=== PATIENT | female | born 1960 | race Caucasian/White ===

== ENCOUNTER → 2017-04-13 | Outpatient (CLI) | payer OTHER | LOC: MAMMO 14:32 | PROVIDERS: ATTEND Nurse Practitioner Family | DX: Z12.31 Encounter for screening mammogram for malignant neoplasm of breast (principal) ==

== ENCOUNTER 2017-10-17 04:33 | Emergency (ER) | payer SELFPAY ==
[2017-10-17 04:48] VITALS: TEMP 97.6; O2SAT 99
[2017-10-17] MEDS ORDERED: PROMETHAZINE HCL INJ 25 MG/ML VIAL ONE (04:56)
[2017-10-17] MEDS ORDERED: SODIUM CHLORIDE 0.9% 50ML 50 ML ONE (04:56)
[2017-10-17] MEDS ORDERED: KETOROLAC TROMETHAMINE INJ 30 MG/ML VIAL IV ONE (04:57)
[2017-10-17] MEDS ORDERED: PROMETHAZINE HCL INJ 25 MG in SODIUM CHLORIDE 0.9% 50ML 50 ML IVPB ONE (04:57)
[2017-10-17] MEDS ORDERED: PANTOPRAZOLE SODIUM IV 40 MG VIAL IV ONE (04:57)
[2017-10-17] MEDS ORDERED: SODIUM CHLORIDE 0.9% 1000ML 1,000 ML IVS ONE (04:57)
[2017-10-17] MEDS ORDERED: ALUMINUM & MAGNESIUM HYDROXIDE 30 ML UD PO ONE (04:58)
--- NOTE | 2017-10-17 05:01 | ED.PDOC ---
History of Present Illness - General Source: patient Exam Limitations: no limitations - History of Present Illness Initial Comments: the patient is a 57-year-old female presenting to the emergency room secondary toepigastric and right upper quadrant pain that started abruptly this morning approximately 3 hours prior to arrival. The patient has been throwing up. No diarrhea. No history of any pancreatitis. She does have a history of gallstones and biliary colic resulting from that. Her last flare was about 3 years ago. She denies any fevers. No cough. She did recently have a URI that has resolved. Timing/Duration: 1-3 hours Severity: severe Improving Factors: nothing Worsening Factors: nothing Associated Symptoms: diaphoresis, loss of appetite, malaise, nausea/vomiting - General Chief Complaint: GI Problem Stated Complaint: gallbladder attack Time Seen by Provider: 10/17/17 04:51 - History of Present Illness Allergies/Adverse Reactions: Allergies Hydrocodone Allergy (Verified 10/17/17 04:48) Meperidine [From Demerol HCl] Allergy (Verified 10/17/17 04:48) Home Medications: Ambulatory Orders Dicyclomine HCl [Bentyl] 20 mg PO Q6HRS #30 tab 10/17/17 Ondansetron HCl [Zofran] 4 mg PO PRN #10 ml 10/17/17 Tramadol HCl [Ultram] 50 mg PO Q6H PRN #30 tab 10/17/17 Review of Systems - Review of Systems Constitutional: States: malaise EENTM: States: no symptoms reported Respiratory: States: no symptoms reported Cardiology: States: no symptoms reported Gastrointestinal/Abdominal: States: abdominal pain, nausea, vomiting. Denies: constipation, diarrhea Genitourinary: States: no symptoms reported Musculoskeletal: States: no symptoms reported Skin: States: no symptoms reported Neurological: States: no symptoms reported Endocrine: States: no symptoms reported All other Systems: No Change from Baseline Past Medical History (General) - Patient Medical History Hx Seizures: No Hx Stroke: No Hx Dementia: No Hx Asthma: No Hx of COPD: No Hx Cardiac Disorders: No Hx Congestive Heart Failure: No Hx Pacemaker: No Hx Hypertension: No Hx Thyroid Disease: No Hx Diabetes: No Hx Gastroesophageal Reflux: No Hx Renal Disease: No Hx of HIV: No Hx MRSA: No - Vaccination History Hx Tetanus, Diphtheria Vaccination: No Hx Influenza Vaccination: Yes - Social History Hx Tobacco Use: No Hx Alcohol Use: Yes - social Family Medical History - Family History Mother Living Status: Still Living Hx Family Hypertension: Yes Hx Family;Other: COPD Physical Exam - Physical Exam General Appearance: Alert, Obvious distress Eye Exam: bilateral normal Ears, Nose, Throat: hearing grossly normal Neck: non-tender, supple Respiratory: lungs clear, normal breath sounds, no respiratory distress, no accessory muscle use Cardiovascular/Chest: normal peripheral pulses, regular rate, rhythm, no edema Peripheral Pulses: radial,right: 2+, radial,left: 2+ Gastrointestinal/Abdominal: soft, other - mild epigastric and right upper quadrant discomfort palpation. No rebound or peritoneal signs. Mildly obese. Rectal Exam: deferred Back Exam: no CVA tenderness, no vertebral tenderness Extremity: normal inspection, no pedal edema, normal capillary refill Neurologic: warehouse manager II-XII nml as tested, alert, normal mood/affect, oriented x 3 Skin Exam: normal color Progress - Progress Progress: 10/17/17 05:02 the patient is a 57-year-old female with a history of intermittent biliary colic from stones in her gallbladder. she reports her symptoms are characteristic with previous attacks. That is the presumptive diagnosis currently. Workup will include CBC, CMP, amylase, lipase, cardiac enzymes, urinalysis, acute abdominal series. She is going to receive doses of Protonix, Maalox, Phenergan, normal saline, Toradol and eventually likely IV morphine if the pain is still persistent. Adjust therapy as dictated by workup results. 10/17/17 06:54 the patient is finally getting some relief after receiving IV Zofran as well as IV Phenergan and a small dose of IV morphine. The patient will be monitored a little further to see if she has a significant recurrence of her abdominal pain and nausea and vomiting once these patients medications wear down. If so she may require admission and further management. It has not been very long since the onset of her symptoms and repeat CMP may be worthwhile in a few hours especially of her symptoms recur along with additional imaging at that time if that is the case. The patient will be followed by Dr. Garvey on morning shift. - Results/Orders Results/Orders: Laboratory Tests 10/17/17 10/17/17 10/17/17 05:06 05:06 05:34 WBC 10.3 RBC 4.82 Hgb 14.0 Hct 41.0 MCV 85.2 MCH 29.2 MCHC 34.2 RDW 12.9 Plt Count 271 MPV 8.5 Absolute Neuts (auto) 8.60 H Absolute Lymphs (auto) 1.30 Absolute Monos (auto) 0.30 Absolute Eos (auto) 0.00 Absolute Basos (auto) 0.00 Neutrophils % 83.7 H Lymphocytes % 12.3 L Monocytes % 3.3 Eosinophils % 0.3 L Basophils % 0.4 Sodium 139 Potassium 3.5 L Chloride 103 Carbon Dioxide 25 Anion Gap 14.5 BUN 21 H Creatinine 0.73 BUN/Creatinine Ratio 28.8 H Random Glucose 143 H Serum Osmolality 283.0 Calcium 10.2 Total Bilirubin 0.7 AST 27 ALT 46 Alkaline Phosphatase 83 Creatine Kinase 108 CK-MB (CK-2) 2.6 CK-MB (CK-2) % Not Reportable Troponin I < 0.02 Serum Total Protein 7.9 Albumin 4.9 Globulin 3.0 Albumin/Globulin Ratio 1.6 Amylase 95 Lipase 39 Urine Color Yellow Urine Appearance Clear Urine pH 6.5 Ur Specific Burnham 1.025 Urine Protein Negative Urine Glucose (UA) Negative Urine Ketones Trace Urine Blood Trace-intact H Urine Nitrite Negative Urine Bilirubin Negative Urine Urobilinogen 0.2 Ur Leukocyte Esterase Negative Urine RBC 0-1 Urine WBC 0-1 Ur Epithelial Cells 1-3 Urine Bacteria 0 acute abdominal series shows no evidence of any acute pathology. No bowel obstruction. No ileus. No free air is obvious. Departure - Departure Clinical Impression: Biliary colic symptom Disposition: Discharge to Home or Self Care Condition: Fair Departure Forms: ED Discharge - Pt. Copy, Patient Portal Self Enrollment Referrals: Cecy Sanchez NP [Primary Care Provider] - 1-2 Weeks Prescriptions: Dicyclomine HCl [Bentyl] 20 mg PO Q6HRS #30 tab Ondansetron HCl [Zofran] 4 mg PO PRN #10 ml Tramadol HCl [Ultram] 50 mg PO Q6H PRN #30 tab PRN Reason: Pain Home Medications: Ambulatory Orders Dicyclomine HCl [Bentyl] 20 mg PO Q6HRS #30 tab 10/17/17 Ondansetron HCl [Zofran] 4 mg PO PRN #10 ml 10/17/17 Tramadol HCl [Ultram] 50 mg PO Q6H PRN #30 tab 10/17/17
[2017-10-17] MEDS ORDERED: ONDANSETRON INJ 4 MG/2 ML VIAL ONE (05:17)
[2017-10-17] MEDS ORDERED: MORPHINE SULFATE INJ 10 MG/ML VIAL ONE (05:18)
[2017-10-17] MEDS ORDERED: ONDANSETRON INJ 4 MG/2 ML VIAL IV ONE (05:19)
[2017-10-17] MEDS ORDERED: MORPHINE SULFATE INJ 10 MG/ML VIAL IV ONE ×2 (05:20→10:29)
--- NOTE | 2017-10-17 06:14 | RAD ---
EXAM: Acute abdominal series. INDICATION: Abdominal pain, acute. COMPARISON: None. FINDINGS: Cardiac silhouette: Unremarkable. Yamileth: Unremarkable. Lobar consolidation: None. Pleural effusion: None. Pneumothorax: None. Other: None. Intraperitoneal free air: Negative. Bowel: No dilated loops of small bowel or air-fluid levels. Bones: Unremarkable. Other: Multiple phleboliths are noted within the pelvis IMPRESSION: 1. Nonspecific, nonobstructed bowel gas pattern. Electronically signed by: Jose De Jesus Raymond MD 10/17/2017 6:12 AM SUPERVISOR [employer]GL[employer] Workstation: [id number]
[2017-10-17 06:42] VITALS: BP 132/79
[2017-10-17] MEDS ORDERED: DICYCLOMINE HCL INJ 20 MG/2 ML AMP IM ONE (07:17)
[2017-10-17] MEDS ORDERED: fentaNYL CITRATE INJ 50 MCG/ML AMP IV ONE (08:11)
--- NOTE | 2017-10-17 11:00 | CT ---
Procedure: CT ABDOMEN PELVIS WITH IV CONTRAST Exam Date: 10/17/2017 10:28 AM DISTRIBUTION DISTRICT SUPERVISOR Ordering Provider: Kati Moreno Clinical Indication: abdominal pain Comparison: None TECHNIQUE: The abdomen and pelvis were scanned utilizing a multidetector helical scanner from the diaphragm to the lesser trochanter . Low osmolar IV contrast was also given. Coronal and sagittal reformations were obtained. This exam was performed according to our departmental dose-optimization program which includes automated exposure control, adjustment of the mA and/or kV according to patient size and/or use of iterative reconstruction technique. DISCUSSION: LOWER THORAX: There are bilateral mammary implants. Heart size is normal. Right basilar subsegmental atelectasis. HEPATOBILIARY: No focal hepatic lesions. No biliary ductal dilatation. The gallbladder is distended. No radiopaque gallstone. SPLEEN: No splenomegaly. PANCREAS: No focal masses or ductal dilatation. ADRENALS: No adrenal nodules. KIDNEYS/URETERS: No hydronephrosis, stones, or solid mass lesions. Subcentimeter simple cysts are seen in the kidneys. PELVIC ORGANS/BLADDER: There is a suspected 3.7 cm uterine fibroid arising from the uterine fundus. Uterus is anteverted. Bladder is unremarkable.. PERITONEUM / RETROPERITONEUM: No free air or fluid. LYMPH NODES: No lymphadenopathy. VESSELS: Unremarkable. GI TRACT: No distention or wall thickening. Small sliding-type hiatal hernia is present. Few scattered ascending and sigmoid diverticula are present without evidence of diverticulitis. BONES AND SOFT TISSUES: No acute abnormality. IMPRESSION: 1. No acute intra-abdominal or intrapelvic process. 2. Colonic diverticulosis without diverticulitis. 3. Small sliding-type hiatal hernia. 4. Suspected uterine fibroid. 5. Distended appearance of the gallbladder without evidence of radiopaque gallstones. Electronically signed by: David Boswell MD 10/17/2017 11:00 AM DISTRIBUTION DISTRICT SUPERVISOR
== END 2017-10-17 12:00 | disposition home or self-care (01) ==
LOC: ER 04:33
DX: K80.20 Calculus of gallbladder without cholecystitis without obstruction (principal)
CPT/HCPCS: 36415; 74019; 74177; 80053; 81001; 82150; 82550; 82553; 83690; 84484; 85025; A4216; J0500; J1885; J2270; J2405; J2550; J3010; J7030

== ENCOUNTER → 2017-11-02 | Outpatient (CLI) | payer OTHER ==
--- NOTE | 2017-11-02 14:58 | US ---
EXAM DESCRIPTION: Abdomen,Complete: Ultrasound. CLINICAL HISTORY: ABD PAIN, RIGHT UPPER QUAD COMPARISON: None Available. TECHNIQUE: Transabdominal scannin-dimensional and Doppler modes. FINDINGS: Gallbladder: Enlarged/distended with multiple layering stones mobile with patient change in position. Acoustic shadowing. Largest stone 8 mm diameter. Wall thickness 2 mm. Not tender with transducer pressure. 0.6 mm echogenic object on the wall which does not change position with patient motion and no acoustic shadowing. No fluid around the gallbladder. Common bile duct: Normal 5.1 mm. Liver: Increased echogenicity. Long axis of the right lobe is 14.4 cm. No intrahepatic biliary dilatation. No ascites. Smooth capsule. Hepatopedal flow of the portal vein. Pancreas: Normal size and echogenicity. Duct was not seen. Abdominal aorta: Normal caliber proximal to distal. IVC: visualized; normal caliber. Spleen normal echogenicity; long axis measurement is 9.8 cm. Right kidney: Long axis is 9.7 cm. Mid renal cortical thickness 11 mm. No hydronephrosis or large stones or perinephric fluid. Left kidney: Long axis is 11.9 cm. Mid renal cortical thickness 8.6 mm. No hydronephrosis, no large calcifications, or perirenal fluid. IMPRESSION: 1. Enlarged and distended gallbladder with multiple movable gallstones. Also polyp. No wall thickening or fluid. Nontender during scanning. 2. Possible steatosis of the liver but not enlarged. No ascites. Normal intrahepatic ducts. 3. Normal caliber common bile duct. 4. Bilateral kidneys with thinning of the cortex, more on the left. No hydronephrosis or perinephric fluid. Is there history of medical renal disease? Electronically signed by: Raji Abebe MD 11/02/2017 2:57 PM INFORMATION SECURITY ARCHITECT
== END ==
LOC: US 08:16
PROVIDERS: ATTEND Surgery
DX: K80.80 Other cholelithiasis without obstruction (principal)

== ENCOUNTER → 2017-11-22 | Day surgery (SDC) | payer OTHER ==
--- NOTE | 2017-11-16 14:53 | RAD ---
Study: Frontal and Lateral Views of the Chest. Indication: pre op Comparison: None. Impression: Heart size normal. Lungs hyperexpanded but clear. Degenerative changes of the spine noted. Osteopenia. If this is a new finding, DEXA scan recommended as well as evaluation for possible osteoporosis treatment. Electronically signed by: Jose Liu MD 11/16/2017 2:36 PM [facility]
[~2017-11-22] MED LIST: ACETAMINOPHEN IV 1000MG 100 ML ONE; BUPIVACAINE 0.25% W/EPI 50 ML VIAL INJ ONE; DEXAMETHASONE INJ 10 MG/ML VIAL IV ONE; ELECTROLYTE-A 1,000 ML IVS ONE; HEPARIN SODIUM (PORCINE) 10,000 UNITS/ML VIAL ONE; HYDROmorphone HCL INJ 2 MG/ML VIAL ONE; LACTATED RINGERS 1,000 ML ONE; LIDOCAINE 1% 10 ML VIAL INJ ONE; METOCLOPRAMIDE HCL INJ 10 MG/2 ML VIAL IV ONE; MIDAZOLAM INJ 2 MG/2 ML VIAL ONE; ONDANSETRON INJ 4 MG/2 ML VIAL ONE; PROPOFOL 200 MG/20 ML VIAL IV ONE; ROCURONIUM BROMIDE 10 MG/ML VIAL ONE; SCOPOLAMINE PATCH 1.5MG 1 EA TD ONE; SODIUM CHL 0.9% 100ML MINI-BAG 100 ML IVPB ONE; SUGAMMADEX SODIUM 200 MG/2 ML VIAL IV ONE; ceFAZolin SODIUM 1 GM VIAL ONE
--- NOTE | 2017-11-22 10:58 | OP ---
DATE OF PROCEDURE: 11/22/17 PREOPERATIVE DIAGNOSIS: 1. Symptomatic cholelithiasis. 2. Fatty infiltration of the liver. POSTOPERATIVE DIAGNOSIS: 1. Symptomatic cholelithiasis. 2. Fatty infiltration of the liver. 3. Chronic cholecystitis. PROCEDURE: 1. Laparoscopic cholecystectomy with intraoperative cholangiography using fluoroscopy. 2. Wedge biopsy, right lobe of the liver. SURGEON: Elvin Rooney MD. HOME AND FAMILY LIVING PROFESSOR: None. ANESTHESIA: Local infiltration of 0.25% Marcaine with epinephrine and general endotracheal anesthesia. INDICATION: The patient is a 57-year-old female who has had knowledge of gallstones for many years. She had generally done well with diet, but recently had some discomfort. She has sonographically diagnosed cholelithiasis. The patient was brought to the Surgical Suite today for cholecystectomy after the risks, benefits and alternatives to the procedure were discussed and accepted. FINDINGS: The patient's gallbladder was quite large and distended and upon aspiration had white bile. Intraoperative cholangiography revealed free flow into the duodenum with no filling defects or strictures noted. There were multiple stones in the gallbladder when it was opened and there were multiple adhesions in the pelvis from previous surgery. The liver appeared to have minimal fatty infiltration of the liver and pathology is pending. DESCRIPTION OF PROCEDURE: After adequate general endotracheal anesthesia was obtained, the patient was prepped and draped in the usual sterile manner. Surgical time-out was taken. The infraumbilical area was infiltrated with local anesthesia. A curvilinear incision was fashioned in the inferior aspect of the umbilicus. Dissection was carried down through the subcutaneous tissue to the midline fascia. Traction sutures were placed on either side of the midline. A small incision was made in the midline fascia and the peritoneum was opened bluntly. Mary trocar was introduced under direct vision into the abdominal cavity and fixed in place with the 20 mL balloon. CO2 was then insufflated until a pressure of 12 mmHg was reached and the abdomen was tympanitic in all four quadrants. When this was done, the laparoscope was introduced. The abdomen was inspected with the previously noted findings. The patient was then placed in reverse Trendelenburg position, turned to the left side. The upper abdominal ports were placed under direct vision. The gallbladder was inspected and a Storz needle was introduced and 60 mL of white bile was aspirated. The site of aspiration was then clipped. The gallbladder was grasped, retracted anteriorly and laterally and flipped over the liver. The neck of the gallbladder was retracted laterally. The triangle of Calot was then explored with the cystic duct and cystic artery identified and isolated. The cystic duct was hemoclipped once proximally. The cystic artery was hemoclipped twice proximally and once distally. Two other vessels were clipped proximally. When this was done, a small incision was made in the cystic duct. The cholangiogram catheter was introduced through a separate stab wound in the right upper quadrant, introduced into the cystic duct and clipped in place. Cholangiograms were then taken using fluoroscopy which revealed free flow into the duodenum with no filling defects or strictures noted. When this was done, the cystic duct catheter was removed. The cystic duct was hemoclipped three times distally and divided between the hemoclips. The cystic artery was divided as were the other vessels. The gallbladder was then dissected free from the gallbladder bed of the liver using electrocautery. The gallbladder was removed from the infraumbilical port site in the usual manner by opening the gallbladder and removing the stones until it easily passed. When this was done, the subhepatic space and subphrenic space were irrigated copiously with saline. There was some bleeding noted from the leny hepatis which was controlled with a single clip on a vessel. There was some oozing in the gallbladder bed of the liver which was easily controlled with electrocautery. When this was done, wedge biopsy of the right lobe of the liver was performed using sharp scissors. It was then removed from the umbilical port. Hemostasis was obtained in the liver with the cautery turned up to 50. When this was done , it was turned back to 30. The subhepatic space and subphrenic space were irrigated copiously with saline. The effluent was noted to be clear. The upper abdominal ports were removed under direct vision. When hemostasis was noted to be adequate there, the CO2, the laparoscope and the infraumbilical port were removed. The infraumbilical port site fascia was approximated with a single [id number] suture of 0 Vicryl. Subcutaneous tissue was irrigated with saline. Skin edges were approximated with 4-0 Vicryl subcuticular sutures , benzoin and Steri-Strips. Sterile dressings were applied. The patient was awakened and taken to the Recovery Room in good and stable condition. Estimated blood loss was less than 50 mL. All sponge, needle and instrument counts were correct. #[id number] [facility]
[2017-11-23 08:45] VITALS: O2SAT 94
[2017-11-23 08:47] VITALS: BP 119/77; TEMP 97.4
== END | disposition home or self-care (01) ==
LOC: AMB 08:00
PROVIDERS: ATTEND Surgery
DX: K80.10 Calculus of gallbladder with chronic cholecystitis without obstruction (principal); K76.0 Fatty (change of) liver, not elsewhere classified; E66.9 Obesity, unspecified; R94.31 Abnormal electrocardiogram [ECG] [EKG]; Z87.891 Personal history of nicotine dependence; Z88.8 Allergy status to other drugs, medicaments and biological substances

== ENCOUNTER → 2018-03-15 | Outpatient (CLI) | payer OTHER ==
--- NOTE | 2018-03-15 11:32 | US ---
EXAM DESCRIPTION: Soft Tissue,Abdomen: ULTRASOUND. CLINICAL HISTORY: HERNIA COMPARISON: None Available. TECHNIQUE: Transcutaneous scanning: Alonzo-scale and Doppler modes.. Patient supine and standing. FINDINGS: When standing, palpable mass in the right inguinal canal. Grayscale images show bowel with peristalsis in the canal. Bowel retraction into the abdomen in supine position. No significant bowel luminal dilation. IMPRESSION: Herniation of bowel into the right inguinal canal with standing, but peristalsis maintained with no luminal dilation. Electronically signed by: Raji Abebe MD 03/15/2018 11:30 AM CDT
== END ==
LOC: US 08:30
PROVIDERS: ATTEND Nurse Practitioner Acute Care
DX: K46.9 Unspecified abdominal hernia without obstruction or gangrene (principal)

== ENCOUNTER → 2018-04-28 | Outpatient (CLI) | payer OTHER ==
--- NOTE | 2018-04-28 18:48 | US ---
EXAM DESCRIPTION: Soft Tissue,Abdomen CLINICAL HISTORY: K46.9 painful lump in the left lower quadrant of the abdomen for six days COMPARISON: Previous study March 15, 2018 TECHNIQUE: Right upper quadrant ultrasound FINDINGS: Study is limited to evaluation of the anterior abdominal wall at the site of palpable abnormality, pain. Small mass is seen 2 x 1.4 x 2.8 cm consistent with a ventral hernia. This may contain omental fat and a small amount of surrounding fluid. There may be some bowel in the hernia as well with shadowing suggesting some gas. The amount of fluid is small. No bowel wall thickening to suggest strangulation or incarceration. Patient had a CT of the abdomen October 17, 2017 but no hernia was seen at that time. No ventral hernia was evident at that time. Patient had a soft tissue sonogram March 15, 2018 which showed evidence of a hernia in the right inguinal area. IMPRESSION: Findings consistent with left lower quadrant ventral hernia. Electronically signed by: Trev Ventura MD 04/28/2018 6:46 PM CDT
== END ==
LOC: US 12:20
PROVIDERS: ATTEND Nurse Practitioner Acute Care
DX: K46.9 Unspecified abdominal hernia without obstruction or gangrene (principal)

== ENCOUNTER → 2019-09-30 | Outpatient (CLI) | payer BC ==
[~2019-09-30] MED LIST changes: -ACETAMINOPHEN IV 1000MG 100 ML ONE; -BUPIVACAINE 0.25% W/EPI 50 ML VIAL INJ ONE; -DEXAMETHASONE INJ 10 MG/ML VIAL IV ONE; +DEXAMETHASONE INJ 4 MG/ML VIAL IM ONE; -ELECTROLYTE-A 1,000 ML IVS ONE; -HEPARIN SODIUM (PORCINE) 10,000 UNITS/ML VIAL ONE; -HYDROmorphone HCL INJ 2 MG/ML VIAL ONE; -LACTATED RINGERS 1,000 ML ONE; -LIDOCAINE 1% 10 ML VIAL INJ ONE; -METOCLOPRAMIDE HCL INJ 10 MG/2 ML VIAL IV ONE; -MIDAZOLAM INJ 2 MG/2 ML VIAL ONE; -ONDANSETRON INJ 4 MG/2 ML VIAL ONE; -PROPOFOL 200 MG/20 ML VIAL IV ONE; -ROCURONIUM BROMIDE 10 MG/ML VIAL ONE; -SCOPOLAMINE PATCH 1.5MG 1 EA TD ONE; -SODIUM CHL 0.9% 100ML MINI-BAG 100 ML IVPB ONE; -SUGAMMADEX SODIUM 200 MG/2 ML VIAL IV ONE; -ceFAZolin SODIUM 1 GM VIAL ONE; +cefTRIAXone SODIUM 1 GM VIAL IM ONE
--- NOTE | 2019-09-30 17:07 | RAD ---
EXAM DESCRIPTION: Chest,2 Views CLINICAL HISTORY: 59 years Female COUGH COMPARISON: November 16, 2017. TECHNIQUE: Two view study of the chest was performed. FINDINGS: Cardiac size is within normal limits. Central vessels are not increased area No infiltrates or effusions seen. No consolidation. No pneumothorax. IMPRESSION: No active disease. Electronically signed by: Naomie Dyer MD 09/30/2019 5:06 PM FOOD SERVICE LEAD
== END ==
LOC: LAB.O 15:15
PROVIDERS: ATTEND Nurse Practitioner Family
DX: J18.9 Pneumonia, unspecified organism (principal)
CPT/HCPCS: 36415; 71046; 85025; 96372; J0696; J1100

== ENCOUNTER → 2019-10-23 | Outpatient (CLI) | payer BC | LOC: LAB.O 09:20 | PROVIDERS: ATTEND Nurse Practitioner Acute Care | DX: E34.8 Other specified endocrine disorders (principal); N95.1 Menopausal and female climacteric states; E50.8 Other manifestations of vitamin A deficiency ==

== ENCOUNTER 2020-11-21 05:38 | Day surgery (SDC) | payer BC ==
--- NOTE | 2020-11-20 13:42 | RAD ---
XR CHEST 2 VIEWS HISTORY: 60 years Female pre op COMPARISON: September 30, 2019. TECHNIQUE: PA and lateral views of the chest. FINDINGS: Lungs: No focal consolidation, pleural effusion, or pneumothorax detected. Heart/Mediastinum: Cardiomediastinal silhouette is unremarkable. Bones: No acute abnormality detected. IMPRESSION: No evidence of an acute cardiopulmonary process. Electronically signed by: Alexys Batres MD 11/20/2020 1:40 PM [facility]
[2020-11-21] MEDS ORDERED: METOCLOPRAMIDE HCL INJ 10 MG/2 ML VIAL ONE (07:00)
[2020-11-21] MEDS ORDERED: MAGNESIUM SULFATE INJ 1 GM/2 ML VIAL ONE (07:00)
[2020-11-21] MEDS ORDERED: KETOROLAC TROMETHAMINE INJ 30 MG/ML VIAL ONE (07:00)
[2020-11-21] MEDS ORDERED: PROPOFOL 200 MG/20 ML VIAL IV ONE (07:00)
[2020-11-21] MEDS ORDERED: DEXAMETHASONE INJ 10 MG/ML VIAL ONE (07:00)
[2020-11-21] MEDS ORDERED: ONDANSETRON ODT 8 MG TAB ONE (07:00)
[2020-11-21] MEDS ORDERED: LIDOCAINE 1% 10 ML VIAL INJ ONE (07:00)
[2020-11-21] MEDS ORDERED: LACTATED RINGERS 1,000 ML ONE (07:15)
[2020-11-21] MEDS ORDERED: ceFAZolin SODIUM 1 GM VIAL ONE (07:15)
[2020-11-21] MEDS ORDERED: SODIUM CHL 0.9% 100ML MINI-BAG 100 ML IVPB ONE (07:16)
[2020-11-21] MEDS ORDERED: LACTATED RINGERS 1,000 ML IVS ONE (07:30)
[2020-11-21] MEDS ORDERED: SCOPOLAMINE PATCH 1.5MG 1 EA TD ONE ×2 (07:50→07:51)
[2020-11-21] MEDS ORDERED: DEXMEDETOMIDINE HCL 200 MCG/2 ML INJ IV ONE (07:57)
[2020-11-21] MEDS ORDERED: MIDAZOLAM INJ 2 MG/2 ML VIAL ONE (07:57)
[2020-11-21] MEDS ORDERED: FAMOTIDINE INJ 10 MG/ML VIAL IV ONE (07:58)
[2020-11-21] MEDS ORDERED: fentaNYL CITRATE INJ 50 MCG/ML 2 ML AMP ONE (07:58)
[2020-11-21] MEDS ORDERED: BUPIVACAINE 0.25% W/EPI 50 ML VIAL INJ ONE ×2 (08:01→08:05)
[2020-11-21] MEDS ORDERED: ACETAMINOPHEN IV 1000MG 100 ML ONE (08:20)
[2020-11-21] MEDS ORDERED: HYDROmorphone HCL INJ 2 MG/ML VIAL ONE (09:27)
[2020-11-21] MEDS ORDERED: LACTATED RINGERS 400 ML IVS ONE (10:36)
[2020-11-21 11:21] VITALS: O2SAT 94
--- NOTE | 2020-11-21 11:29 | OP ---
DATE OF PROCEDURE: 11/21/20 PREOPERATIVE DIAGNOSIS: 1. Incarcerated right inguinal hernia. 2. Left lower quadrant ventral hernia. POSTOPERATIVE DIAGNOSIS: 1. Incarcerated right inguinal hernia. 2. Left lower quadrant ventral hernia. PROCEDURE: 1. Repair of incarcerated right inguinal hernia with onlay mesh. 2. Repair of left lower quadrant ventral herniation with onlay mesh. SURGEON: Elvin Rooney MD. FOREST MANAGEMENT TEACHER: None. ANESTHESIA: Local infiltration of 0.25% Marcaine with epinephrine and general laryngeal mask anesthesia. INDICATION: The patient is a 60-year-old female with a tender mass in the right groin that has been present for some time, but has become more uncomfortable and non-reducible. She also has a reducible, mildly tender mass in the left lower quadrant which has been evaluated with radiological workup and reveals a hernia. The patient was brought to the Surgical Suite today for repair of same after the risks, benefits and alternatives to the procedure were discussed and accepted. FINDINGS: The right inguinal hernia was an indirect inguinal hernia. There appeared to be both bowel and omentum within the hernia prior to reduction. The bowel was viable appearing through the hernia sac, which was not opened. The hernia in the left lower quadrant was lateral to the rectus muscle and a defect in the internal oblique fascia. PROCEDURE: After adequate general laryngeal mask anesthesia was obtained, the patient was prepped and draped in the usual sterile manner. The right lower quadrant was then marked and local infiltration of anesthesia was obtained. The skin was incised with a sharp knife obliquely. Dissection was carried down through the skin and subcutaneous tissue using electrocautery and blunt dissection. The external oblique fascia was identified and then incised in the direction of the fibers through the external inguinal ring. The external oblique fascia was dissected free from the floor of the canal and the round ligament. Self-retaining retractor was placed at this level. The round ligament was dissected free from the floor of the canal. A half inch Kerri drain was placed around it. The hernia sac was then dissected free from the round ligament and reduced down to the floor of the inguinal canal, then circumferentially dissected using blunt dissection so that there was a place for the mesh. The Prolene mesh system was introduced using the taco technique. It was then spread flat against the inside of the floor of the canal. When this was done, the outer mesh layer was then sutured circumferentially with interrupted 2-0 Vicryl sutures. When this was done, hemostasis was noted to be adequate. The wound was irrigated with saline. The external oblique fascia was then closed with running 3-0 Vicryl suture. The round ligament and subcutaneous tissue above and below the incision were infiltrated with local anesthesia. The Pravin's fascia was approximated with interrupted Chromic suture. Skin edges were approximated with skin stapler. A towel was placed over the wound. The surgeon then changed sides. An oblique incision was made over the hernia site in the left lower quadrant. Dissection was carried down through the skin to the fascia. The bulge could be identified through the external layer of fascia, but the defect was not appreciated, so the external oblique fibers were incised in the direction of the fiber and the plane was obtained underneath it. At this point, the hernia defect was identified. It appeared to be approximately 1 cm, maybe just over 1 cm in width. The hernia was dissected with electrocautery and blunt dissection and reduced below the layer of the fascia. The fascia was then repaired with 3- 0 Prolene [id number] sutures. The wound was irrigated. Hemostasis was noted to be adequate. A Surgimesh patch was introduced which was approximately 7 x 4 cm obliquely over the repair and sutured in placed with interrupted 2-0 Vicryl sutures. The external oblique fascia was then closed with a running 3-0 Vicryl suture. The repair and the skin above and below the incision were infiltrated with local anesthesia. Pravin's fascia was approximated with interrupted 3-0 Vicryl sutures. The skin edges were approximated with a skin stapler. Sterile dressings were applied. The patient was awakened and taken to the Recovery Room in good and stable condition. Estimated blood loss was less than 50 mL. All sponge, needle and instrument counts were correct. #[id number] [facility]
[2020-11-21 13:01] VITALS: BP 114/77; TEMP 97.6
== END 2020-11-21 11:55 | disposition home or self-care (01) ==
LOC: AMB 05:38
PROVIDERS: ATTEND Surgery
DX: K40.30 Unilateral inguinal hernia, with obstruction, without gangrene, not specified as recurrent (principal); K43.9 Ventral hernia without obstruction or gangrene
CPT/HCPCS: 00830; 36415; 49507; 49560; 49568; 71046; 80053; 81001; 85025; 93005; J0690; J1100; J1170; J1885; J2250; J2765; J3010; J3475; J3490; J7050; J7120